=== PATIENT | female | born 1950 | race Caucasian/White ===

== ENCOUNTER → 2021-02-13 | Outpatient (CLI) | payer MEDICARE, OTHER ==
[~2021-02-13] MED LIST: ALBUTEROL SULF 2.5 MG/0.5ML(0.5%) NEB SOLN ONE
== END | disposition home or self-care (01) ==
LOC: RT 08:26
PROVIDERS: ATTEND Internal Medicine Pulmonary Disease
DX: J98.11 Atelectasis (principal); J44.9 Chronic obstructive pulmonary disease, unspecified; J98.8 Other specified respiratory disorders; Z20.822 Contact with and (suspected) exposure to COVID-19
CPT/HCPCS: 36415; 87426; 94060; 94727; 94729

== ENCOUNTER 2022-01-25 05:01 | Emergency (ER) | payer MEDICARE, OTHER ==
[~2022-01-25] VITALS: Ht 165.1 cm; Wt 54.4 kg
[2022-01-25 06:32] LABS: Basophils # (auto) 0 10 ^3/uL (0-0.2); Basophils % (auto) 0.4 % (0.0-2.0); Eosinophils # (auto) 0.1 10 ^3/uL (0-0.8); Eosinophils % (auto) 1.5 % (0.0-7.0); Hematocrit 39.5 % (36.0-46.0); Hemoglobin 13.1 g/dL (12.2-16.2); Lymphocytes # (auto) 1.1 10 ^3/uL (0.4-5.4); Mean Corpuscular Hemoglobin 29.6 pg (28.0-32.0); Mean Corpuscular Hgb Conc. 33.3 g/dL (32.0-36.0); Monocytes # (auto) 0.4 10 ^3/uL (0-1.3); Monocytes % (auto) 6.5 % (0.0-12.0); Neutrophils # (auto) 4.9 10 ^3/uL (1.6-8.6); Neutrophils % (auto) 74.6 % (37.0-80.0); Red Blood Cells 4.44 10^6/uL (4.0-5.20); Red Cell Distribution Width 13.2 % (11.8-14.3); White Blood Cell 6.6 10^3/uL (4.4-10.8)
[2022-01-25 06:54] LABS: Albumin 3.5 g/dL (3.4-5.0); Calcium 8.3 mg/dL (8.5-10.1); Potassium 4.2 mmol/L (3.5-5.1)
[2022-01-25 06:59] LABS: BUN/Creatinine Ratio 23.5; Bilirubin, Total 0.4 mg/dL (0.2-1.0); Total Protein 6.5 g/dL (6.4-8.2)
[2022-01-25] MEDS ORDERED: MECLIZINE HCL 25 MG TAB PO ONE (07:15)
[2022-01-25 08:21] VITALS: BP 135/72
[2022-01-25] MEDS ORDERED: MECL25CH38 PO (08:40)
== END 2022-01-25 09:31 | disposition home or self-care (01) ==
LOC: EDBD 05:01 → ER 05:01
DX: R42 Dizziness and giddiness (principal); J44.9 Chronic obstructive pulmonary disease, unspecified; F17.210 Nicotine dependence, cigarettes, uncomplicated; Z88.5 Allergy status to narcotic agent
CPT/HCPCS: 36415; 70450; 71045; 80053; 83735; 83880; 84484; 85025; 93005; 99285; J8597

== ENCOUNTER 2022-02-12 15:06 | Inpatient (IN) | payer MEDICARE, OTHER ==
[~2022-02-12] VITALS: Ht 165.1 cm; Wt 54.7 kg
[~2022-02-12 15:06] MED LIST changes: -ALBUTEROL SULF 2.5 MG/0.5ML(0.5%) NEB SOLN ONE; +MECL25CH38 PO
[2022-02-12 15:41] LABS: Basophils # (auto) 0 10 ^3/uL (0-0.2); Basophils % (auto) 0.6 % (0.0-2.0); Eosinophils # (auto) 0.1 10 ^3/uL (0-0.8); Eosinophils % (auto) 1.1 % (0.0-7.0); Hematocrit 42.4 % (36.0-46.0); Hemoglobin 13.8 g/dL (12.2-16.2); Lymphocytes # (auto) 1.6 10 ^3/uL (0.4-5.4); Lymphocytes % (auto) 22.3 % (10.0-50.0); Mean Corpuscular Hemoglobin 29.3 pg (28.0-32.0); Mean Corpuscular Hgb Conc. 32.6 g/dL (32.0-36.0); Monocytes # (auto) 0.5 10 ^3/uL (0-1.3); Monocytes % (auto) 6.9 % (0.0-12.0); Neutrophils # (auto) 4.9 10 ^3/uL (1.6-8.6); Neutrophils % (auto) 69.1 % (37.0-80.0); Nucleated Red Blood Cells % 0.1 %; Red Blood Cells 4.71 10^6/uL (4.0-5.20); Red Cell Distribution Width 12.9 % (11.8-14.3); White Blood Cell 7.1 10^3/uL (4.4-10.8)
[2022-02-12 15:57] LABS: Albumin 3.9 g/dL (3.4-5.0); BUN/Creatinine Ratio 13.8; Calcium 8.3 mg/dL (8.5-10.1); Potassium 4.4 mmol/L (3.5-5.1)
[2022-02-12 16:00] LABS: Bilirubin, Total 0.4 mg/dL (0.2-1.0); Total Protein 7.4 g/dL (6.4-8.2)
[2022-02-12 16:43] LABS: Urine Bacteria NONE SEEN /hpf (None Seen); Urine Blood TRACE /uL (Negative); Urine Specific Gravity 1.004 (1.001-1.035); Urine WBC 1 /hpf (0 - 5)
[2022-02-12] MEDS ORDERED: ALUM & MAG HYDROX-SIMETH LIQ(MAALOX) 30 ML PO ONE (17:30)
[2022-02-12] MEDS ORDERED: TEMAZEPAM 15 MG CAP PO PRN (23:15)
[2022-02-12] MEDS ORDERED: ACETAMINOPHEN 325 MG TAB PO PRN (23:15)
[2022-02-12] MEDS ORDERED: HYDROcodone-ACET 5/325MG TAB PO PRN (23:15)
[2022-02-12] MEDS ORDERED: ONDANSETRON HCL 4 MG/2 ML VIAL IV PRN (23:15)
[2022-02-12] MEDS ORDERED: MECLIZINE HCL 25 MG TAB PO PRN (23:15)
[2022-02-12] MEDS ORDERED: NITROGLYCERIN 0.4 MG SL TAB SL PRN (23:15)
[2022-02-12] MEDS ORDERED: MORPHINE SULFATE INJ 2 MG/ml SYRG IV PRN (23:15)
[2022-02-13] MEDS: D5W/SOD CHL 0.45% 1,000 ML IV SCH ×2 (02:09→13:13)
[2022-02-13 04:05] LABS: Basophils # (auto) 0 10 ^3/uL (0-0.2); Basophils % (auto) 0.4 % (0.0-2.0); Eosinophils # (auto) 0.1 10 ^3/uL (0-0.8); Eosinophils % (auto) 1.6 % (0.0-7.0); Hematocrit 35.7 % (36.0-46.0); Lymphocytes # (auto) 1.2 10 ^3/uL (0.4-5.4); Lymphocytes % (auto) 19.6 % (10.0-50.0); Mean Corpuscular Hemoglobin 30.3 pg (28.0-32.0); Mean Corpuscular Hgb Conc. 33.7 g/dL (32.0-36.0); Monocytes # (auto) 0.4 10 ^3/uL (0-1.3); Monocytes % (auto) 7.1 % (0.0-12.0); Neutrophils # (auto) 4.5 10 ^3/uL (1.6-8.6); Neutrophils % (auto) 71.3 % (37.0-80.0); Red Blood Cells 3.97 10^6/uL (4.0-5.20); Red Cell Distribution Width 13.1 % (11.8-14.3); White Blood Cell 6.3 10^3/uL (4.4-10.8)
[2022-02-13 04:36] LABS: Albumin 3.1 g/dL (3.4-5.0); Calcium 7.7 mg/dL (8.5-10.1); Potassium 4.2 mmol/L (3.5-5.1)
[2022-02-13 04:40] LABS: BUN/Creatinine Ratio 11.3; Bilirubin, Total 0.3 mg/dL (0.2-1.0); Total Protein 5.8 g/dL (6.4-8.2)
[2022-02-13] MEDS ORDERED: SUCRALFATE 1 GM TAB PO ONE (08:00)
[2022-02-13] MEDS ORDERED: FAMOTIDINE (10MG/ML) 2ML VL IV SCH (10:00)
[2022-02-13] MEDS: PANTOPRAZOLE 40 MG/10 ML VIAL INJ IV SCH ×2 (10:05→21:50)
[2022-02-13 14:00] VITALS: BP 110/59
[2022-02-13] MEDS ORDERED: LORazepam 2MG/ML-1ML VIAL IV PRN (14:00)
[2022-02-13] MEDS ORDERED: ALPRAZolam 0.25 MG TAB PO PRN (14:00)
[2022-02-13 14:34] VITALS: BP 110/59
[2022-02-13 17:28] VITALS: BP 124/70
[2022-02-13 23:50] VITALS: BP 111/57
[2022-02-14] MEDS: D5W/SOD CHL 0.45% 1,000 ML IV SCH ×2 (01:42→15:15)
[2022-02-14 06:00] VITALS: BP 116/62
[2022-02-14 09:14] VITALS: BP 128/68
[2022-02-14] MEDS: PANTOPRAZOLE 40 MG/10 ML VIAL INJ IV SCH ×2 (10:33→21:32)
[2022-02-14 13:00] VITALS: BP 129/56
[2022-02-14 17:06] VITALS: BP 116/78
[2022-02-14 21:54] VITALS: BP 126/63
[2022-02-15] MEDS: D5W/SOD CHL 0.45% 1,000 ML IV SCH (04:39)
[2022-02-15 05:00] VITALS: BP 110/63
[2022-02-15] MEDS ORDERED: MIDAZOLAM HCL 5 MG/ML-1ML VIAL ONE (07:12)
[2022-02-15] MEDS ORDERED: LIDOCAINE VISCOUS 2% 15ML UD ONE (07:12)
[2022-02-15] MEDS ORDERED: diphenhdrAMINE HCL 50 MG/1 ML VL ONE (07:13)
[2022-02-15] MEDS ORDERED: fentaNYL CITRATE 100 MCG/2 ML VL ONE (07:13)
[2022-02-15 08:00] VITALS: BP 134/66
[2022-02-15] MEDS ORDERED: LIDOCAINE VISCOUS 2% 15ML UD MT ONE (09:22)
[2022-02-15] MEDS ORDERED: fentaNYL CITRATE 100 MCG/2 ML VL IV ONE (09:25)
[2022-02-15] MEDS ORDERED: diphenhdrAMINE HCL 50 MG/1 ML VL IV ONE (09:25)
[2022-02-15] MEDS ORDERED: MIDAZOLAM HCL 5 MG/ML-1ML VIAL IV ONE ×2 (09:25→09:29)
[2022-02-15] MEDS: PANTOPRAZOLE 40 MG/10 ML VIAL INJ IV SCH (10:35)
[2022-02-15] MEDS ORDERED: SUCR1TAB22 OR (10:37)
[2022-02-15] MEDS ORDERED: PANT40TA2 PO (10:37)
[2022-02-15] MEDS ORDERED: SUCRALFATE 1 GM/10 ML ORAL SUSP PO SCH (11:30)
[2022-02-15 12:00] VITALS: BP 124/60
== END 2022-02-15 14:05 | disposition home or self-care (01) | DRG 392 ==
LOC: ER 15:06 → OVERFLOW 23:09 → WEST WING 02-13 13:54
PROVIDERS: ADMIT Nurse Practitioner Family; ATTEND Nurse Practitioner Acute Care
PROC: 0DB68ZX Excision of Stomach, Via Natural or Artificial Opening Endoscopic, Diagnostic (ICD-10-PCS; 2022-02-15)
PROC: 0DB98ZX Excision of Duodenum, Via Natural or Artificial Opening Endoscopic, Diagnostic (ICD-10-PCS; principal; 2022-02-15 09:18)
DX: K29.70 Gastritis, unspecified, without bleeding (principal); R64 Cachexia; Z68.1 Body mass index [BMI] 19.9 or less, adult; K27.9 Peptic ulcer, site unspecified, unspecified as acute or chronic, without hemorrhage or perforation; I10 Essential (primary) hypertension; F41.1 Generalized anxiety disorder; H81.10 Benign paroxysmal vertigo, unspecified ear; J44.9 Chronic obstructive pulmonary disease, unspecified; Z20.822 Contact with and (suspected) exposure to COVID-19; K44.9 Diaphragmatic hernia without obstruction or gangrene; K21.9 Gastro-esophageal reflux disease without esophagitis; F17.210 Nicotine dependence, cigarettes, uncomplicated; Z79.899 Other long term (current) drug therapy; Z82.0 Family history of epilepsy and other diseases of the nervous system
CPT/HCPCS: 36415; 43239; 70551; 76705; 80053; 81001; 82150; 82962; 83690; 84484; 85025; 93005; 95819; 96374; C9113; G0378; J2250; J2405; J7060

== ENCOUNTER 2023-07-24 10:45 | Emergency (ER) | payer MEDICARE, OTHER ==
[~2023-07-24] VITALS: Ht 162.6 cm; Wt 55.0 kg
[~2023-07-24 10:45] MED LIST changes: +PANT40TA2 PO; +SUCR1TAB22 OR
[2023-07-24 12:26] LABS: Alanine Aminotransferase 18 U/L (7-40); Albumin 4.3 g/dL (3.2-4.8); Alkaline Phosphatase 132 U/L (46-116); Anion Gap 4 (5-15); Aspartate Aminotransferase 34 U/L (13-40); BUN/Creatinine Ratio 11.1 (10.0-20.0); Basophils # (auto) 0 10 ^3/uL (0-0.2); Basophils % (auto) 0.3 % (0.0-2.0); Bilirubin, Total 0.4 mg/dL (0.2-1.0); Blood Urea Nitrogen 7 mg/dL (9-23); Calcium 9.3 mg/dL (8.5-10.1); Carbon Dioxide 32 mmol/L (20-30); Chloride 105 mmol/L (98-107); Eosinophils # (auto) 0.1 10 ^3/uL (0-0.8); Eosinophils % (auto) 1.5 % (0.0-7.0); Glucose 105 mg/dL (74-106); Hematocrit 41.5 % (36.0-46.0); Hemoglobin 13.6 g/dL (12.2-16.2); Lymphocytes # (auto) 1.2 10 ^3/uL (0.4-5.4); Lymphocytes % (auto) 17.9 % (10.0-50.0); Mean Corpuscular Hemoglobin 29.9 pg (28.0-32.0); Mean Corpuscular Hgb Conc. 32.9 g/dL (32.0-36.0); Mean Corpuscular Volume 90.8 fL (80.0-100.0); Monocytes # (auto) 0.5 10 ^3/uL (0-1.3); Monocytes % (auto) 7.2 % (0.0-12.0); Neutrophils % (auto) 73.1 % (37.0-80.0); Nucleated Red Blood Cells % 0.1 %; Potassium 4.1 mmol/L (3.5-5.1); Red Blood Cells 4.57 10^6/uL (4.0-5.20); Sodium 141 mmol/L (136-145); Total Protein 6.6 g/dL (5.7-8.2); White Blood Cell 6.8 10^3/uL (4.4-10.8)
[2023-07-24] MEDS: SODIUM CHLORIDE 0.9% 1,000 ML IV ONE (13:26)
[2023-07-24 13:36] VITALS: PULSE 82; RESP 16; O2SAT 93
[2023-07-24 15:39] VITALS: BP 141/89; PULSE 84; RESP 16; TEMP 97.9; O2SAT 95
== END 2023-07-24 14:45 | disposition short-term general hospital (02) ==
LOC: EDBD 10:45 → ER 10:45
DX: S06.5X1A Traumatic subdural hemorrhage with loss of consciousness of 30 minutes or less, initial encounter (principal); M62.838 Other muscle spasm; M79.651 Pain in right thigh; J44.9 Chronic obstructive pulmonary disease, unspecified; F17.210 Nicotine dependence, cigarettes, uncomplicated; Z79.899 Other long term (current) drug therapy
CPT/HCPCS: 36415; 70450; 72125; 73610; 80053; 85025; 96360; 96361; 99285; J7030